=== PATIENT | male | born 1945 | race Caucasian/White ===

== ENCOUNTER 2022-03-25 17:25 | Emergency (ER) | payer OTHER, SELFPAY ==
[2022-03-25 17:35] VITALS: BP 146/83; PULSE 67; RESP 20; TEMP 37.2; O2SAT 98
--- NOTE | 2022-03-25 18:12 | ED.URI ---
HPI - URI/Sore Throat General Chief Complaint: Upper Respiratory Infection Stated Complaint: chills headache weak Time Seen by Provider: 03/25/22 18:15 Source: patient, RN notes reviewed and old records reviewed Mode of arrival: ambulatory Limitations: no limitations History of Present Illness HPI Narrative: 76-year-old male presene has ts to express care with complaints of intermittent chills, headaches, feels weak has had decreased appetite for the past 3 days. He did take a home COVID test but after finding that it was negative he found that it was also . Patient reports that his COVID vaccinations are up to date and he had shingles shot and influenza shot this month. Patient reports that he has taken some Ibuprofen and has used flonase. Patient does have history of asthma and COPD, denies any acute cough or any respiratory distress. MD elicited complaint: other (headache, weakness, chills, decreased appetite) Pertinent past history: COPD and asthma Onset (ago): day(s) (3) Consistency: constant Treatments prior to arrival: ibuprofen and other (Flonase, inhalers as prescribed) Related Data Home Medications Medication Instructions Recorded Confirmed Artificial Tears 1 drp QID PRN Dry Eye(S) 03/25/22 03/25/22 Flonase 2 spray DAILY 03/25/22 03/25/22 [place] 1 tablet Q8-10H PRN Pain 03/25/22 03/25/22 albuterol 2 puff QID PRN Wheezing 03/25/22 03/25/22 azelastine 1 - 2 spray BID 03/25/22 03/25/22 budesonide-formoterol 2 puff BID 03/25/22 03/25/22 guanfacine 1 mg HS 03/25/22 03/25/22 methylphenidate HCl 30 mg BID 03/25/22 03/25/22 metoprolol tartrate 50 mg BID 03/25/22 03/25/22 montelukast 10 mg HS 03/25/22 03/25/22 olmesartan 20 mg DAILY 03/25/22 03/25/22 tiotropium bromide 2 puff DAILY 03/25/22 03/25/22 zolpidem 10 mg HS PRN Sleep 03/25/22 03/25/22 Allergies Allergy/AdvReac Type Severity Reaction Status Date / Time fenofibrate [From Tricor] Allergy Unknown Verified 03/25/22 18:38 niacin Allergy Unknown Verified 03/25/22 18:38 [From Niaspan Extended-Release] pravastatin Allergy Unknown Verified 03/25/22 18:38 rosuvastatin Allergy Unknown Verified 03/25/22 18:38 simvastatin [From Zocor] Allergy Unknown Verified 03/25/22 18:38 Review of Systems Review of Systems: CONSTITUTIONAL:Reports malaise, chills, sweats, or fever.reports weakness EYES: Denies visual changes, redness, or discharge. ENT: Reports rhinorrhea, congestion, no sinus pain, otalgia some sore throat. CARDIOVASCULAR: Denies chest pain, palpitations, or edema. RESPIRATORY: Reports cough.? Denies dyspnea. GASTROINTESTINAL: Denies abdominal pain, nausea, vomiting, diarrhea, reports decreased appetite SKIN: Denies rash or itching. MUSCULOSKELETAL: Denies myalgia. NEUROLOGIC: reports headache. All systems reviewed & are unremarkable except as noted in HPI and below PMFSH Past Medical History Medical History (Updated 03/27/22 @ 20:56 by Sandi Mane NP) Asthma Bulging discs COPD (chronic obstructive pulmonary disease) Hypertension Social History Social History (Updated 03/27/22 @ 20:55 by Sandi Mane NP) Smoking status: Current every day smoker Substance use type: does not use Gender identity (if verbalized by the patient): Male Comments At time of signature, agree with nursing past medical, surgical, social and family history. There is no relevant family history pertinent to the presenting complaint Exam Narrative: GENERAL: Well-appearing, well-nourished, and in no acute distress. HEAD: Normocephalic EYES: PERRLA, conjunctivae clear ENT: Nares clear, turbinates edematous and erythematous, clear discharge. Mucous membranes moist. TM pearly maddox with dull light reflex bilaterally; no tragal tenderness. Oropharynx erythematous with white plaque areas to back of throat and on tongue. Tonsils not enlarged and without exudate, no drooling, no hoarseness, no trismus, uvula midline. NECK: Supple. No lymp
== END 2022-03-25 19:06 | disposition home or self-care (01) ==
PROVIDERS: Emergency Provider Registered Nurse; PCP Family Medicine
DX: J06.9 Acute upper respiratory infection, unspecified (principal); B37.0 Candidal stomatitis; Z20.822 Contact with and (suspected) exposure to COVID-19; J44.9 Chronic obstructive pulmonary disease, unspecified; I10 Essential (primary) hypertension; F17.290 Nicotine dependence, other tobacco product, uncomplicated
CPT/HCPCS: 87426; 87804; 99213; C9803; G0463